=== PATIENT | female | born 1990 | race Caucasian/White ===

== ENCOUNTER 2017-07-19 15:02 | Emergency (ER) | payer MEDICAID ==
[~2017-07-19] VITALS: Ht 157.5 cm; Wt 63.5 kg
[2017-07-19 15:12] VITALS: Ht 157.5 cm; Wt 63.5 kg
[2017-07-19 15:42] VITALS: BP 110/64
== END 2017-07-19 15:43 | disposition home or self-care (01) ==
LOC: ED 15:02
DX: R07.89 Other chest pain (principal); R06.02 Shortness of breath; Z88.1 Allergy status to other antibiotic agents; Z88.6 Allergy status to analgesic agent; Z88.0 Allergy status to penicillin
CPT/HCPCS: J1885

== ENCOUNTER 2017-11-05 10:00 | Emergency (ER) | payer MEDICAID ==
[~2017-11-05] VITALS: Ht 157.5 cm; Wt 66.7 kg
[2017-11-05 10:03] VITALS: Ht 157.5 cm; Wt 66.7 kg
[2017-11-05 10:27] VITALS: BP 125/72
== END 2017-11-05 10:27 | disposition home or self-care (01) ==
LOC: ED 10:00
DX: S61.012D Laceration without foreign body of left thumb without damage to nail, subsequent encounter (principal); I10 Essential (primary) hypertension; E11.9 Type 2 diabetes mellitus without complications; Z88.1 Allergy status to other antibiotic agents; Z88.6 Allergy status to analgesic agent; X58.XXXD Exposure to other specified factors, subsequent encounter

== ENCOUNTER 2017-11-10 09:56 | Emergency (ER) | payer MEDICAID ==
[2017-11-10 10:09] VITALS: BP 107/63; Ht 157.5 cm
== END 2017-11-10 10:45 | disposition home or self-care (01) ==
LOC: ED 09:56
DX: F41.9 Anxiety disorder, unspecified (principal); K21.9 Gastro-esophageal reflux disease without esophagitis; S61.012D Laceration without foreign body of left thumb without damage to nail, subsequent encounter; Z88.1 Allergy status to other antibiotic agents; Z88.6 Allergy status to analgesic agent; Z88.8 Allergy status to other drugs, medicaments and biological substances; X58.XXXD Exposure to other specified factors, subsequent encounter